=== PATIENT | female | born 1975 | race African-American/Black ===

== ENCOUNTER 2017-09-28 10:10 | Emergency (ER) | payer OTHER ==
[~2017-09-28] VITALS: Ht 162.6 cm; Wt 54.4 kg
--- OUTSIDE RECORDS SUMMARY | 2017-11-12 03:11 | XMS REPORT | Clinical Summary ---
Author Author [facility] Address Unknown Phone Unavailable Care Team Providers Care Sheet Manufacturing Supervisor Name Role Phone Asked, Pcp PCP Unavailable Allergies No Known Allergies Current Medications Prescription Sig. Disp. Refills Start End Date Status Date acetaminophen-codeine Take 1-2 tablets by mouth 15 tablet 0 02/23/19 02/28/19 (TYLENOL WITH CODEINE #3) every 6 (six) hours as 18 18 300-30 mg per tablet needed for moderate pain for up to 5 days. Active Problems Not on file Encounters Date Type Specialty Care Team Description 02/23/2017 Emergency Emergency Medicine Nadir Hightower, Abdominal pain, - MD unspecified abdominal 02/24/2017 location (Primary Dx) after 09/27/2016 Social History Tobacco Use Types Packs/Day Years Used Date Never Smoker Smokeless Tobacco: Never Used Alcohol Use Drinks/Week oz/Week Comments Yes 8 Cans of 4.8 beer Sex Assigned at Date Recorded Not on file Last Filed Vital Signs Vital Sign Reading Time Taken Blood Pressure 133/73 02/23/2017 11:59 PM [facility] Pulse 56 02/23/2017 11:59 PM [facility] Temperature 36.6 C (97.9 F) 02/23/2017 11:59 PM [facility] Respiratory Rate 13 02/23/2017 11:59 PM [facility] Oxygen Saturation 99% 02/23/2017 11:59 PM [facility] Inhaled Oxygen - - Concentration Weight 54.4 kg (120 lb) 02/23/2017 7:24 PM [facility] Height 162.6 cm (5' 4") 02/23/2017 7:24 PM [facility] Body Mass Index 20.6 02/23/2017 7:24 PM [facility] Plan of Treatment Not on file Procedures Procedure Name Priority Date/Time Associated Diagnosis Comments RESPIRATORY PATHOGEN STAT 02/23/2017 Results for this PANEL 11:55 PM [facility] procedure are in the results section. INFLUENZA ANTIGEN Routine 02/23/2017 Results for this 11:02 PM [facility] procedure are in the results section. ZZESTIMATED GFR STAT 02/23/2017 Results for this 8:10 PM [facility] procedure are in the results section. LACTIC ACID LEVEL STAT 02/23/2017 Results for this 8:10 PM [facility] procedure are in the results section. HC COMPLETE BLD COUNT STAT 02/23/2017 Results for this W/AUTO DIFF 8:10 PM [facility] procedure are in the results section. LIPASE LEVEL STAT 02/23/2017 Results for this 8:10 PM [facility] procedure are in the results section. AMYLASE LEVEL STAT 02/23/2017 Results for this 8:10 PM [facility] procedure are in the results section. COMPREHENSIVE METABOLIC STAT 02/23/2017 Results for this PANEL 8:10 PM [facility] procedure are in the results section. HCG QUALITATIVE, URINE STAT 02/23/2017 Results for this SCREEN 7:30 PM [facility] procedure are in the results section. URINALYSIS SCREEN AND STAT 02/23/2017 Results for this MICROSCOPY, WITH REFLEX 7:30 PM [facility] procedure are in the TO CULTURE results section. URINE CULTURE STAT 02/23/2017 Results for this 7:30 PM [facility] procedure are in the results section. after 09/27/2016 Results * Respiratory pathogen panel (02/23/2017 11:55 PM) Respiratory pathogen Negative for all pathogens [facility] DEPARTMENT OF panel tested: PATHOLOGY AND Negative for Adenovirus GENOMIC MEDICINE Negative for Coronavirus HKU1 Negative for Coronavirus NL63 Negative for Coronavirus 229E Negative for Coronavirus OC43 Negative for Human Metapneumovirus Negative for Rhinovirus/Enterovirus Negative for Influenza A Negative for Influenza A/H1 Negative for Influenza A/H3 Negative for Influenza A/H1-2009 Negative for Influenza B Negative for Parainfluenza Virus 1 Negative for Parainfluenza Virus 2 Negative for Parainfluenza Virus 3 Negative for Parainfluenza Virus 4 Negative for Respiratory Syncytial Virus Negative for Bordetella pertussis Negative for Chlamydophila pneumoniae Negative for Mycoplasma pneumoniae This real-time PCR assay detects the presence of nucleic acids (RNA or DNA) for the respiratory pathogens listed. A result of "Not-detected" does not exclude the possibility of the presence of one or more pathogens at concentrations less than the detectable limits of the assay. Comment: Specimen Information Specimen Source: Nares Specimen Site: Not specified Specimen Nares - Not specified Performing Organization Address City/State/Zipcode Phone Number [facility] DEPARTMENT OF [address] [place] [address] PATHOLOGY AND GENOMIC MEDICINE * Influenza antigen (02/23/2017 11:02 PM) Influenza antigen Negative for Influenza A/B [facility] antigen. PATHOLOGY AND Comment: GENOMIC MEDICINE Specimen Information Specimen Source: Nares Specimen Site: Right Specimen Nares - Right Performing Organization Address City/State/Zipcode Phone Number [facility] [address] [place] [address] PATHOLOGY AND GENOMIC MEDICINE * Estimated GFR (02/23/2017 8:10 PM) GFR Non Af Amer 78 mL/min/1.73 m2 [facility] PATHOLOGY AND GENOMIC MEDICINE GFR Af Amer >90 mL/min/1.73 m2 [facility] Comment: PATHOLOGY AND Chronic kidney disease: <60 GENOMIC MEDICINE mL/min/1.73m2 Kidney failure: <15 mL/min/1.73m2 The estimated GFR is calculated from the IDMS-traceable Modification of Diet in Renal Disease Equation. The accuracy of the calculation is poor when the creatinine is normal. Calculated values >90 mL/min/1.73m2 are not reported. This equation has not been validated in children (<18 years), women, the elderly (>70 years), or ethnic groups other than Caucasians and Americans. Specimen Plasma specimen Performing Organization Address City/State/Zipcode Phone Number [facility] [address] [place] [address] PATHOLOGY AND GENOMIC MEDICINE * CBC with platelet and differential (02/23/2017 8:10 PM) WBC 5.8 4.2 - 11.0 k/uL [facility] PATHOLOGY AND GENOMIC MEDICINE RBC 4.60 4.04 - 5.86 m/uL [facility] PATHOLOGY AND GENOMIC MEDICINE HGB 13.3 11.5 - 15.3 g/dL [facility] PATHOLOGY AND GENOMIC MEDICINE HCT 41.3 34.0 - 45.0 % [facility] PATHOLOGY AND GENOMIC MEDICINE MCV 89.8 80.0 - 98.0 fL [facility] PATHOLOGY AND GENOMIC MEDICINE MCH 28.9 27.0 - 34.0 pg [facility] PATHOLOGY AND GENOMIC MEDICINE MCHC 32.2 31.5 - 36.5 g/dL [facility] PATHOLOGY AND GENOMIC MEDICINE RDW - SD 40.2 37.0 - 51.0 fL [facility] PATHOLOGY AND GENOMIC MEDICINE MPV 10.5 (H) 7.4 - 10.4 fL [facility] PATHOLOGY AND GENOMIC MEDICINE Platelet count 247 150 - 400 k/uL [facility] PATHOLOGY AND GENOMIC MEDICINE Nucleated RBC 0.00 /100 WBC [facility] PATHOLOGY AND GENOMIC MEDICINE Neutrophils 41.7 36.0 - 66.0 % [facility] PATHOLOGY AND GENOMIC MEDICINE Lymphocytes 45.4 (H) 24.0 - 44.0 % [facility] PATHOLOGY AND GENOMIC MEDICINE Monocytes 9.4 (H) 0.0 - 6.0 % [facility] PATHOLOGY AND GENOMIC MEDICINE Eosinophils 2.6 0.0 - 6.0 % [facility] PATHOLOGY AND GENOMIC MEDICINE Basophils 0.7 0.0 - 1.2 % [facility] PATHOLOGY AND GENOMIC MEDICINE Immature granulocytes 0.2 0.0 - 1.0 % [facility] PATHOLOGY AND GENOMIC MEDICINE Specimen Blood Performing Organization Address City/[facility] [place] [address] PATHOLOGY AND GENOMIC MEDICINE * Lipase level (02/23/2017 8:10 PM) Lipase 103 65 - 230 U/L [facility] PATHOLOGY AND GENOMIC MEDICINE Specimen Plasma specimen Performing Organization Address City/[facility] [place] [address] PATHOLOGY AND GENOMIC MEDICINE * Lactic acid level (02/23/2017 8:10 PM) Lactic acid 1.4 0.5 - 2.2 mmol/L [facility] PATHOLOGY AND GENOMIC MEDICINE Specimen Blood Performing Organization Address City/[facility] [place] [address] PATHOLOGY AND [facility] MEDICINE * Amylase level (02/23/2017 8:10 PM) Amylase 68 34 - 122 U/L [facility] PATHOLOGY AND GENOMIC MEDICINE Specimen Plasma specimen Performing Organization Address City/[facility] [place] [address] PATHOLOGY AND [facility] MEDICINE * Comprehensive metabolic panel (02/23/2017 8:10 PM) Sodium 139 135 - 150 mEq/L [facility] OF PATHOLOGY AND GENOMIC MEDICINE Potassium 4.0 3.5 - 5.0 mEq/L [facility] PATHOLOGY AND GENOMIC MEDICINE Chloride 106 100 - 109 mEq/L [facility] PATHOLOGY AND GENOMIC MEDICINE CO2 29 24 - 32 mmol/L [facility] PATHOLOGY AND GENOMIC MEDICINE Anion gap 4 (L) 7 - 15 mEq/L [facility] Comment: PATHOLOGY AND Starting from May [facility] , anion gap calculation no longer incorporates potassium. Please note the change. BUN 11 7 - 18 mg/dL [facility] PATHOLOGY AND GENOMIC MEDICINE Creatinine 0.8 0.8 - 1.5 mg/dL [facility] PATHOLOGY AND GENOMIC MEDICINE Glucose 88 65 - 100 mg/dL [facility] PATHOLOGY AND GENOMIC MEDICINE Calcium 8.8 8.6 - 10.7 mg/dL [facility] PATHOLOGY AND GENOMIC MEDICINE Protein 7.2 6.3 - 8.2 g/dL [facility] PATHOLOGY AND GENOMIC MEDICINE Albumin 4.0 3.2 - 5.0 g/dL [facility] PATHOLOGY AND GENOMIC MEDICINE A/G ratio 1.2 0.7 - 3.8 [facility] PATHOLOGY AND GENOMIC MEDICINE Alkaline phosphatase 50 30 - 120 U/L [facility] PATHOLOGY AND GENOMIC MEDICINE AST 11 (L) 15 - 37 U/L [facility] PATHOLOGY AND GENOMIC MEDICINE ALT 16 (L) 30 - 65 U/L [facility] PATHOLOGY AND GENOMIC MEDICINE Total bilirubin 0.4 0.2 - 1.2 mg/dL [facility] PATHOLOGY AND GENOMIC MEDICINE Specimen Plasma specimen Performing Organization Address City/State/Zipcode Phone Number [place] [phone] [place] [address] PATHOLOGY AND GENOMIC MEDICINE * Urinalysis screen and microscopy, with reflex to culture (02/23/2017 7:30 PM) Specimen site Clean catch [facility]OLOGY AND GENOMIC MEDICINE Color, UA Yellow [facility] PATHOLOGY AND GENOMIC MEDICINE Appearance, UA Clear [facility] PATHOLOGY AND GENOMIC MEDICINE Specific gravity, UA 1.017 1.001 - 1.035 [facility] PATHOLOGY AND GENOMIC MEDICINE pH, UA 7.0 5.0 - 8.5 [facility] PATHOLOGY AND GENOMIC MEDICINE Protein, UA Negative Negative [facility] PATHOLOGY AND GENOMIC MEDICINE Glucose, UA Negative Negative [facility] PATHOLOGY AND GENOMIC MEDICINE Ketones, UA Negative Negative [facility] PATHOLOGY AND GENOMIC MEDICINE Bilirubin, UA Negative Negative [facility] PATHOLOGY AND GENOMIC MEDICINE Blood, UA Negative Negative [facility] PATHOLOGY AND GENOMIC MEDICINE Nitrite, UA Negative Negative [facility]OLOGY AND GENOMIC MEDICINE Urobilinogen, UA 2.0 (A) <2.0 [facility] PATHOLOGY AND GENOMIC MEDICINE Leukocyte esterase, UA Negative Negative [facility] PATHOLOGY AND GENOMIC MEDICINE Epithelial cells, UA Few /HPF [facility] PATHOLOGY AND GENOMIC MEDICINE WBC, UA <1 0 - 5 /HPF [facility] PATHOLOGY AND GENOMIC MEDICINE RBC, UA 1 0 - 5 /HPF [facility] PATHOLOGY AND GENOMIC MEDICINE Bacteria, UA None seen None seen [facility] PATHOLOGY AND GENOMIC MEDICINE Yeast, UA None seen [facility] PATHOLOGY AND GENOMIC MEDICINE Yeast with pseudohyphae, None seen [facility] UA PATHOLOGY AND GENOMIC MEDICINE Specimen Urine Performing Organization Address City/[facility] Phone Number [facility] [address] [place] [address] PATHOLOGY AND GENOMIC MEDICINE * hCG qualitative, urine screen (02/23/2017 7:30 PM) hCG qualitative, urine Negative Negative [facility] Comment: PATHOLOGY AND The manufacturers stated GENOMIC MEDICINE sensitivity of HcG test for serum is >/=10 mIU/ml and urine is >/=20mIU/ml. Specimen Urine Performing Organization Address City/[facility] Phone Number [facility] [address] [place] [address] PATHOLOGY AND GENOMIC MEDICINE * Urine culture (02/23/2017 7:30 PM) Urine culture SEE COMMENTComment: [facility] Bacteriuria screen negative. PATHOLOGY AND GENOMIC MEDICINE Performing Organization Address City/[facility] Phone Number [facility] [address] [place] [address] PATHOLOGY AND GENOMIC MEDICINE after 09/27/2016 Insurance Payer Benefit Subscriber ID Type Phone Address Plan / Group AETNA AETNA xxxxxxxxx HMO HMO,POS,EP O, MC/EC Home: [address] [facility] [place] [phone]
== END 2017-09-28 11:23 | disposition left against medical advice (07) ==
LOC: ER 10:10
DX: R20.2 Paresthesia of skin (principal); J01.00 Acute maxillary sinusitis, unspecified; J01.10 Acute frontal sinusitis, unspecified